=== PATIENT | male | born 1960 | race Caucasian/White ===

== ENCOUNTER 2017-05-02 19:37 | Inpatient (IN) | payer BC ==
[2017-05-02] MEDS ORDERED: Octreotide Acetate 1,250 MCG in Sodium Chloride 0.9% 250 ML 250 ML IVPB SCH (21:00)
[2017-05-02] MEDS ORDERED: Ondansetron HCl/PF 4 MG/2 ML Vial ONE (21:11)
[2017-05-02 21:49] LABS: #Lymphocytes 0.8 thou/uL (1.20-3.40); #Monocytes 0.3 thou/uL (0.11-0.59); #Neutrophils 11.4 thou/uL (1.40-6.50); %Basophils 0.4 % (0.0-1.0); %Eosinophils 0.4 % (0.0-10.0); %Monocytes 2.3 % (0.0-10.0); Hematocrit 41.1 % (42.0-52.0); Mean Platelet Volume 7.1 fL (7.4-10.4); Red Blood Cell (RBC) Count 4.24 mill/uL (4.70-6.10); White Blood Cell (WBC) Count 12.6 thou/uL (4.8-10.8)
[2017-05-02 22:03] LABS: ALT (SGPT) 18 U/L (8-55); AST (SGOT) 18 U/L (5-34); Alkaline Phosphatase 55 U/L (40-150); Anion Gap 16 mmol/L (10-20); BUN (Urea Nitrogen) 20 mg/dL (8.4-25.7); Bilirubin, Total 0.7 mg/dL (0.2-1.2); Calc. Creatinine Clearance 0 mL/min (70-130); Calcium 8.3 mg/dL (7.8-10.44); Carbon Dioxide 19 mmol/L (22-29); Chloride 107 mmol/L (98-107); Estimated GFR-MDRD 66; Globulin 2.7 g/dL (2.4-3.5); Protein, Total 6.4 g/dL (6.0-8.3)
--- NOTE | 2017-05-02 22:03 | HP ---
DATE OF ADMISSION: 05/02/2017 PRIMARY CARE PHYSICIAN: London Jorge M.D. at [facility]. CHIEF COMPLAINT: GI bleeding with syncope. HISTORY OF PRESENT ILLNESS: The patient is a 56-year-old male with chronic alcohol use, presented t o the [place] [facility] after an episode of syncope with lower GI bleeding. Over the last one week, the patient has on and off lower abdominal discomfort that is more like cram ping, mild in intensity. Over the last 24 hours, he started noticing blood in his stool. He felt l ightheaded, dizzy, and had 2 episodes of syncope today. He had a total of 5 episodes of lower gastr ointestinal bleeding. He saw some fresh blood with blood clots. He passed out when he was trying t o stand up and go to the bathroom. He denies significant injuries; however, has an abrasion on his head per family report. He denies any headache, double vision, blurring of vision, facial asymmetry , weakness, numbness of any of his extremities, chest pain, palpitations. No EGD, colonoscopy in past. He denies any previous GI issues. He drinks up to a glass of wine on a daily basis. He de nies chronic nonsteroidal anti-inflammatory drug use; however, takes BC powder on a weekly basis. In the Emergency Room at [place], his initial vital signs showed temperature 97.9, respirations 18, pulse of 66 with blood pressure 84/56. His lowest blood pressure was 73/47. He received 1 unit of PRBC. His initial H\T\H was 13.1 with hematocrit of 37.2. PAST MEDICAL HISTORY: 1. Chronic alcohol use. 2. Herpes lesion on his skin for which he takes acyclovir on a daily basis. PAST SURGICAL HISTORY: 1. Vasectomy. 2. Hernia repair. 3. Right shoulder surgery. ALLERGIES: The patient denies any drug allergies. CURRENT HOME MEDICATIONS: Acyclovir 400 mg b.i.d. SOCIAL HISTORY: As discussed above. No smoking or drug use. FAMILY HISTORY: Positive for colon cancer and leukemia. Heart disease also runs in his family. REVIEW OF SYSTEMS: The following complete review of systems was negative, unless otherwise mentione d in the HPI or below: Constitutional: Weight loss or gain, ability to conduct usual activities. Skin: Rash, itching. E yes: Double vision, pain. ENT/Mouth: Nose bleeding, neck stiffness, pain, tenderness. Cardiovasc ular: Palpitations, dyspnea on exertion, orthopnea. Respiratory: Shortness of breath, wheezing, c ough, hemoptysis, fever or night sweats. Gastrointestinal: Poor appetite, abdominal pain, heartbur n, nausea, vomiting, constipation, or diarrhea. Genitourinary: Urgency, frequency, dysuria, noctur ia. Musculoskeletal: Pain, swelling. Neurologic/Psychiatric: Anxiety, depression. Allergy/Immun ologic: Skin rash, bleeding tendency. PHYSICAL EXAMINATION: VITAL SIGNS: As discussed above. His last blood pressure was 118/74. GENERAL: A 56-year-old male in no apparent distress. Denies any pain. HEENT: Head atraumatic, normocephalic. Sclerae are anicteric. Moist mucous membranes. No oral le tonny. NECK: Supple, no JVD, no carotid bruit. LUNGS: Clear to auscultation bilaterally. No wheezing or rales. HEART: S1, S2 present. Regular rate and rhythm. No murmurs, rubs or gallops appreciated. ABDOMEN: Soft, mild tenderness in the lower quadrants. No rebound, guarding, no costovertebral ang le tenderness. EXTREMITIES: No edema or calf tenderness. NEUROLOGIC: Grossly nonfocal, moves all four extremities. PSYCHIATRY: Alert, awake, oriented x3. SKIN: Warm and dry. LYMPH NODES: No palpable lymph nodes in the neck. PERIPHERAL VASCULAR: Radial pulses palpable bilaterally. MUSCULOSKELETAL: No joint swelling or tenderness. LABORATORY FINDINGS: As discussed above. Potassium was 3.4, BUN 20, creatinine 1.28, glucose of 19 8. Telemetry monitoring by my review showed sinus rhythm without significant ST-T wave changes. IMPRESSION: 1. Hypovolemic shock secondary to lower gastrointestinal bleeding. 2. Anemia secondary to acute gastrointestinal blood loss. 3. Hypokalemia. 4. Chronic kidney disease stage III versus acute kidney injury. 5. Hyperglycemia, rule out diabetes mellitus type 2. 6. Chronic alcohol use. PLAN: The patient will be monitored in the intermediate care unit. Gastroenterology has been notif ied. We will keep him n.p.o. We will start him on Protonix drip. IV fluids. Monitor H\T\H closel y. Orthostatic vitals in a.m. Strict bed rest for now. Deep venous thrombosis prophylaxis with se quential compression devices. CODE STATUS: FULL CODE. Plan of care was discussed with the patient. He stated understanding.
[2017-05-02 22:06] LABS: Troponin I Less than 0.010 ng/mL (< 0.028)
--- NOTE | 2017-05-02 22:43 | CT ---
CT OF THE BRAIN WITHOUT CONTRAST: 05/02/17 INDICATION: Loss of consciousness at home with rectal bleeding. COMPARISON: None. FINDINGS: There is mild mucosal thickening of the ethmoid air cells. Mastoid air cells are clear. Skull is int act. There is generalized cerebral atrophy. Septum pellucidum and third ventricle are midline. No ac [place] infarct, hemorrhage or hydrocephalus is present. IMPRESSION: No acute intracranial abnormality. Mild generalized cerebral atrophy. POS: [facility]
[2017-05-02] MEDS ORDERED: Pantoprazole 80 MG in Sodium Chloride 0.9% 100 ML IVP SCH (23:30)
[2017-05-02] MEDS ORDERED: Pantoprazole 40 MG VIAL IVP SCH (23:30)
[2017-05-02] MEDS ORDERED: GoLYTELY 4,000 ml Bottle PO SCH (23:30)
[2017-05-02] MEDS ORDERED: Eucerin (Mineral Oil/Petrolatum,White) 30 gm Jar TOP PRN (23:43)
[2017-05-02] MEDS ORDERED: hydrALAZINE 20 MG/ML VIAL SLOW IVP PRN (23:43)
[2017-05-02] MEDS ORDERED: Nitroglycerin 0.4 MG TAB (25 Tab Bottle) PO PRN (23:43)
[2017-05-02] MEDS ORDERED: Acetaminophen 325 MG TAB PO PRN (23:43)
[2017-05-02] MEDS ORDERED: Calcium Carbonate 500 MG ChewTAB PO PRN (23:43)
[2017-05-02] MEDS ORDERED: Ondansetron ODT 4 MG TAB PO PRN (23:43)
[2017-05-02] MEDS ORDERED: Diabetic Tussin 200 MG/10 ML UDCUP PO PRN (23:43)
[2017-05-02] MEDS ORDERED: Ondansetron HCl/PF 4 MG/2 ML Vial IVP PRN (23:43)
[2017-05-03] MEDS ORDERED: Pantoprazole 40 MG VIAL ONE (00:56)
--- NOTE | 2017-05-03 03:48 | CON ---
DATE OF CONSULTATION: 05/02/2017 CHIEF COMPLAINT: Blood in the stool. HISTORY OF PRESENT ILLNESS: Mr. Ag is a 56-year-old man who had sudden onset of black to dark re d bloody stools with clots around 5 times at home starting this afternoon. He passed out and lost c onsciousness. He had a second presyncopal episode as well. He then proceeded to the emergency room for further care and was found to have hypotension with a blood pressure in the 70 systolic. He young d no nausea or vomiting with this. No abdominal pain. No preceding diarrhea or constipation. He d id have some lower abdominal aching discomforts the week before, but that pain has resolved over the last day or so. He takes BC powder 2 packets once a week for pain. He does not take any other NSA IDs. He drinks a glass or 2 of wine once a day. He has had no chest pain or shortness of breath. PAST MEDICAL HISTORY: Otherwise, negative. PAST SURGICAL HISTORY: Left inguinal hernia repair, shoulder surgery and vasectomy. FAMILY HISTORY: Positive for colon cancer in a grandmother. SOCIAL HISTORY: Drinks 1 or 2 glasses of wine per day. No smoking, no drugs. ALLERGIES: No known drug allergies. MEDICATIONS: Prior to admission, acyclovir once daily and BC powder once a week as stated above. REVIEW OF SYSTEMS: Negative x10 systems reviewed except as stated in the history of present illness . PHYSICAL EXAMINATION: VITAL SIGNS: His blood pressure now is in the 140s/88 range. His pulse is in the 80s. He is afebr ile. GENERAL: He is in no acute distress, alert and oriented x3. HEENT: Eyes have no scleral icterus. Oropharynx is clear, without lesions. NECK: No cervical or supraclavicular lymphadenopathy. LUNGS: Clear to auscultation bilaterally. HEART: Regular rate and rhythm without murmur. ABDOMEN: Soft, nontender, nondistended, bowel sounds are present, no hepatomegaly. EXTREMITIES: No lower extremity edema. RECTAL: Revealed some red blood in the stool mixed with black clots. LABORATORY DATA: Creatinine 1.14, bilirubin 0.7, AST 18, ALT 18, alkaline phosphatase 55, albumin 3 .7. INR 1.1. White blood cell count 12.6, hemoglobin 13.7, platelets 255. IMPRESSION: Acute gastrointestinal bleed. This appears to most likely be an upper gastrointestinal source given the black stools that he passed initially. A right-sided colon bleed is also possible . He has no abdominal pain with this. We suspect a duodenal ulcer versus a right-sided diverticula r bleed; however, I think a duodenal ulcer would be more likely. There is no known liver disease an d the alcohol use is only a glass or two of wine per day, so would not expect cirrhosis to be playin g a significant role here. His liver function tests are normal. He already received 1 or 2 units o f blood. He received 1 dose of Protonix at the outside ER. RECOMMENDATIONS: 1. We will give Protonix drip. 2. Prep with GoLYTELY. PLAN: EGD and colonoscopy tomorrow. If he starts bleeding actively again and starts passing furthe r black stools and becomes hemodynamically unstable again, then we can proceed more directly to uppe r endoscopy. In the meantime, he has had no further stool output for the last 6 hours and his hemod ynamic status is stable and we will plan on proceeding with both upper and lower endoscopy tomorrow.
[2017-05-03 04:08] LABS: Hemoglobin A1c 5.2 % (4.0-6.0)
[2017-05-03] MEDS ORDERED: GoLYTELY 4,000 ml Bottle PO SCH (07:00)
[2017-05-03 07:09] VITALS: BMI 30.2
[2017-05-03] MEDS: Sodium Chloride 0.9% 1,000 ML IV SCH ×2 (09:33→09:34)
[2017-05-03] MEDS: Multivit, Therapeutic 1 TAB PO SCH (09:35)
[2017-05-03 09:41] LABS: Hematocrit 35.9 % (42.0-52.0)
--- NOTE | 2017-05-03 11:10 | PDOC.PN ---
- Subjective Encounter Start Date: 05/03/17 Encounter Start Time: 11:00 Subjective: Last BM while doing prep was red colored with fresh blood, no clot. No more -: hypotension, syncope, dizziness, or tachycardia. Going for EGD and colonosc -: around 1400 - Objective Resuscitation Status: Resuscitation Status FULL:Full Resuscitation MAR Reviewed: Yes Vital Signs & Weight: Vital Signs (12 hours) Temp Pulse Resp BP Pulse Ox 05/03/17 07:21 98.2 F 79 20 118/61 91 L 05/03/17 05:55 98.3 F 81 18 118/59 L 92 L Weight Weight 217 lb 2.485 oz Result Diagrams: 05/03/17 09:31 05/02/17 21:41 Phys Exam - Physical Examination Constitutional: NAD HEENT: moist MMs Respiratory: no wheezing, no rales, no rhonchi, clear to auscultation bilateral Cardiovascular: RRR, no significant murmur Gastrointestinal: soft, non-tender, positive bowel sounds Neurological: non-focal, moves all 4 limbs Psychiatric: normal affect, A&O x 3 Dx/Plan (1) GI bleed Code(s): K92.2 - GASTROINTESTINAL HEMORRHAGE, UNSPECIFIED Status: Acute Plan: CBC stable, will recheck after scope this afternoon (2) Hypovolemic shock Code(s): R57.1 - HYPOVOLEMIC SHOCK Status: Resolved - Plan cont current plan of care EGD/Colonoscopy today -: Transfuse as needed * . - Discharge Day Encounter end time: 12:00
[2017-05-03] MEDS ORDERED: Propofol 200 MG/20 ML VIAL ONE (14:58)
[2017-05-03] MEDS ORDERED: Promethazine HCl 25 MG/ML VIAL SLOW IVP PRN (15:30)
[2017-05-03] MEDS ORDERED: Promethazine HCl 25 MG/ML VIAL IM PRN (15:30)
[2017-05-03] MEDS ORDERED: Ondansetron HCl/PF 4 MG/2 ML Vial IVP PRN (15:30)
[2017-05-03 16:32] LABS: Hematocrit 30.5 % (42.0-52.0)
--- NOTE | 2017-05-03 20:22 | OP ---
PROCEDURES PERFORMED: Esophagogastroduodenoscopy and colonoscopy. PREPROCEDURE DIAGNOSIS: Gastrointestinal hemorrhage. POSTPROCEDURE DIAGNOSES 1. Gastric erosions and ulcerations in the antrum consistent with NSAID gastritis. Otherwise, norm al esophagogastroduodenoscopy. 2. Diverticulosis coli with no signs of active bleeding. Otherwise, normal colonoscopy. RECOMMENDATIONS: 1. Avoid NSAIDs. 2. PPI. 3. Advance diet. 4. Await gastric biopsies. PROCEDURE IN DETAIL: After the patient was informed of the risks, benefits, possible complications of endoscopy. The patient signed informed consent, he was brought to endoscopy suite where he was s edated in gradual fashion. Once she was comfortable, the endoscope was advanced through the esophag us, stomach and second and third portion of duodenum and slowly removed. There was normal esophagus . The stomach was then entered and found to be normal in forward and retroflexed views proximally. In the antrum, there was erosive gastritis with some small ulcers, no active bleeding was identifie d. No visible vessels were seen. This could have been a source of GI bleeding. Biopsies were obta ined and submitted to Pathology. The scope was advanced to the bulb of the duodenum, and second, th ird portions which were normal. The scope was then removed. The patient was turned in the room. A rectal examination was performed, which was normal. The endo scope was advanced through anal canal through the colon to cecum which was identified by ileocecal v alve and appendiceal orifice. Terminal ileum was entered and found to be normal. There was diverti culosis coli throughout the colon. There was no active bleeding identified or clots. Retroflexed v iews in the rectum were normal. The scope was removed. The patient tolerated the procedure well wi th no complications.
[2017-05-03] MEDS: Pantoprazole 40 MG VIAL IVP SCH (21:02)
[2017-05-04] MEDS: Sodium Chloride 0.9% 1,000 ML IV SCH ×4 (02:05→09:30)
[2017-05-04] MEDS ORDERED: cloNIDine 0.1 MG TAB PO PRN (08:29)
[2017-05-04] MEDS ORDERED: Lorazepam 1 MG TAB PO PRN (08:29)
[2017-05-04 09:00] VITALS: TEMP 98.1
[2017-05-04] MEDS: Pantoprazole 40 MG VIAL IVP SCH (09:00)
[2017-05-04] MEDS ORDERED: Multivit, Therapeutic 1 TAB PO SCH (09:00)
[2017-05-04] MEDS ORDERED: Folic Acid 1 MG TAB PO SCH (09:00)
[2017-05-04] MEDS ORDERED: FLU VACC QS2017-18 36 mo. & older 0.5 ML SYRINGE IM ONE (09:00)
[2017-05-04] MEDS: Multivit, Therapeutic 1 TAB PO SCH (09:01)
[2017-05-04 10:27] LABS: #Eosinphils 0.1 thou/uL (0.0-0.7); #Lymphocytes 1.2 thou/uL (1.20-3.40); #Monocytes 0.5 thou/uL (0.11-0.59); #Neutrophils 5.5 thou/uL (1.40-6.50); %Basophils 0.6 % (0.0-1.0); %Lymphocytes 16.7 % (21.0-51.0); %Monocytes 7.2 % (0.0-10.0); Hematocrit 30.9 % (42.0-52.0); Mean Platelet Volume 6.7 fL (7.4-10.4); Red Blood Cell (RBC) Count 3.14 mill/uL (4.70-6.10); White Blood Cell (WBC) Count 7.5 thou/uL (4.8-10.8)
[2017-05-04 10:48] LABS: Anion Gap 12 mmol/L (10-20); BUN (Urea Nitrogen) 14 mg/dL (8.4-25.7); Calc. Creatinine Clearance 95 mL/min (70-130); Calcium 8.1 mg/dL (7.8-10.44); Carbon Dioxide 24 mmol/L (22-29); Chloride 108 mmol/L (98-107); Estimated GFR-MDRD 63
[2017-05-04 13:06] VITALS: BP 137/77
--- NOTE | 2017-05-04 14:11 | DIS ---
DATE OF DISCHARGE: 05/04/2017 DISCHARGE DISPOSITION: Home. FOLLOWUP: 1. Follow up with primary care physician, Dr. London Jorge in 1 week. 2. Follow up with Dr. Bobby Hess in 2 weeks. ALLERGIES: No known drug allergies. DISCHARGE MEDICATIONS: Protonix 40 mg daily, multivitamin 1 tablet daily, Slow FE 142 mg daily, acy clovir 400 mg b.i.d. The patient was seen and examined on the day of discharge, denies any new complaints, no chest pain, shortness of breath, palpitations. No new episodes of hematochezia or melena. BRIEF HOSPITAL COURSE: Patient is a 56-year-old white male with chronic nonsteroidal anti-inflammat ory drug use, presented to the hospital with GI bleeding as well as 2 episodes of syncope. Please r efer to the history and physical dated 05/02/2017 for further details. The patient was admitted to the hospital with a diagnosis of hypovolemic shock with lower GI bleedin g. His blood pressure at [facility] was in systolic 70s. He was admitted to the hospital with a d iagnosis of GI bleeding. His lowest H\T\H was 10.3. His H\T\H on the day of discharge is 10.5. An EGD showed gastric erosions and ulcerations in the antrum consistent with nonsteroidal anti-inflamm atory drugs and gastritis. Colonoscopy showed diverticulosis without any active bleeding. He has b een cleared by Gastroenterology for discharge. He was extensively counseled to quit nonsteroidal an ti-inflammatory drug use. FINAL DIAGNOSES: 1. Hypovolemic shock secondary to gastrointestinal bleeding. 2. Anemia secondary to acute gastrointestinal blood loss. 3. Hypokalemia. His potassium at [place] was 3.4, corrected. 4. Chronic kidney disease stage 2 with mild acute kidney injury. 5. Hyperglycemia, probably stress related. Hemoglobin A1c was 5.2. 6. Almost daily alcohol use. The patient drinks 1-2 glasses of wine on a daily basis. 7. Obesity with a BMI of 30.3. Plan of care was discussed with the patient and the family at the bedside. They stated tia nichols
== END 2017-05-04 16:06 | disposition home or self-care (01) | DRG 377 ==
LOC: ERS 19:37 → ERHOLD 21:07 → 2NO 05-03 05:35
PROVIDERS: ADMIT Internal Medicine; ATTEND Internal Medicine
PROC: 0DB68ZX Excision of Stomach, Via Natural or Artificial Opening Endoscopic, Diagnostic (ICD-10-PCS; principal; 2017-05-03)
PROC: 0DJD8ZZ Inspection of Lower Intestinal Tract, Via Natural or Artificial Opening Endoscopic (ICD-10-PCS; 2017-05-03)
DX: K29.01 Acute gastritis with bleeding (principal); R57.1 Hypovolemic shock; D62 Acute posthemorrhagic anemia; N17.9 Acute kidney failure, unspecified; T39.395A Adverse effect of other nonsteroidal anti-inflammatory drugs [NSAID], initial encounter; K57.30 Diverticulosis of large intestine without perforation or abscess without bleeding; E87.6 Hypokalemia; N18.2 Chronic kidney disease, stage 2 (mild); R73.9 Hyperglycemia, unspecified; E66.9 Obesity, unspecified; Z68.30 Body mass index [BMI] 30.0-30.9, adult; B00.9 Herpesviral infection, unspecified; Z72.89 Other problems related to lifestyle
CPT/HCPCS: 36415; 70450; 80048; 83036; 83735; 84484; 85014; 85018; 85025; 88305; 88312; 96365; 96366; 96368; 96375; 96376; C9113; J2354; J2405; J2704; J7050